=== PATIENT | male | born 1985 | race Caucasian/White ===

== ENCOUNTER 2020-12-31 15:12 | Emergency (ER) | payer SELFPAY ==
[~2020-12-31] VITALS: Ht 170.2 cm; Wt 75.0 kg
[2020-12-31 15:52] VITALS: BP 112/71
[2020-12-31] MEDS ORDERED: HYDROcodone/APAP 5/325MG 1 TAB TABLET PO ONE (16:45)
[2020-12-31] MEDS ORDERED: DIPH,PERTUSS(ACELL),TET VAC/PF 0.5 ML SYRINGE. VAX IM ONE (16:45)
[2020-12-31] MEDS ORDERED: NEOMY/BACITR/POLYMYXIN OINT PACKET. TP ONE (16:45)
--- NOTE | 2020-12-31 18:04 | RAD ---
EXAM: PA, oblique and lateral views of the right hand DATE: 12/31/2020 5:13 PM INDICATION: Reason: dog bites pain / Spl. Instructions: / History: COMPARISON: No Prior FINDINGS/ IMPRESSION: No acute fracture or dislocation. Soft tissue swelling and gas surrounding the metacarpals. No defini te retained radiopaque foreign body. Electronically signed by: Erick Paige MD (12/31/2020 6:02 PM) [facility]
[2020-12-31] MEDS ORDERED: AMOX1TAB61 PO (18:08)
--- NOTE | 2020-12-31 18:08 | PHYS DOC ---
Past Medical History Past Medical History: No Pertinent History (LI VALLES DO) Past Surgical History: No Surgical History (LI VALLES DO) Smoking Status: Current Every Day Smoker Alcohol Use: Occasionally (LI VALLES DO) General Adult EDM: Chief Complaint: ANIMAL BITE HPI: HPI: Patient is a 35 year old [f__sex] who presents with [] (LI VALLES DO) HPI: This chart was created twice, ignore this chart. Look at the original chart with the same name that was completed (RADHA ASHER APRN) Review of Systems: Review of Systems: Constitutional: Denies fever or chills. [] Eyes: Denies change in visual acuity. [] HENT: Denies nasal congestion or sore throat. [] Respiratory: Denies cough or shortness of breath. [] Cardiovascular: Denies chest pain or edema. [] GI: Denies abdominal pain, nausea, vomiting, bloody stools or diarrhea. [] : Denies dysuria. [] Musculoskeletal: Denies back pain or joint pain. [] Integument: Denies rash. [] Neurologic: Denies headache, focal weakness or sensory changes. [] Endocrine: Denies polyuria or polydipsia. [] Lymphatic: Denies swollen glands. [] Psychiatric: Denies depression or anxiety. [] (LI VALLES DO) Heart Score: Risk Factors: Risk Factors: DM, Current or recent (<one month) smoker, HTN, HLP, family history of CAD, obesity. Risk Scores: Score 0 - 3: 2.5% MACE over next 6 weeks - Discharge Home Score 4 - 6: 20.3% MACE over next 6 weeks - Admit for Clinical Observation Score 7 - 10: 72.7% MACE over next 6 weeks - Early Invasive Strategies (LI VALLES DO) C/O Chest Pain: N/A (RADHA ASHER APRN) Current Medications: Current Medications Medications (Trade) Dose Ordered Sig/Jovany Start Time Stop Time Status Last Admin Dose Admin Acetaminophen/ Hydrocodone Bitart (Lortab 5/325) 1 tab 1X ONCE 12/31/20 16:45 12/31/20 16:46 DC 12/31/20 17:13 1 TAB Diphtheria/ Tetanus/Acell Pertussis (ADACEL TDap SYRINGE) 0.5 ml ONCE ONCE 12/31/20 16:45 12/31/20 16:46 DC 12/31/20 17:14 0.5 ML Neomycin/ Polymyxin/ Bacitracin (Triple Antibiotic Ointment) 1 pkt 1X ONCE 12/31/20 16:45 12/31/20 16:46 DC 12/31/20 17:13 1 PKT (LI VALLES DO) Allergies: Allergies: Allergies Coded Allergies Type Severity Reaction Last Updated Verified No Known Drug Allergies 12/31/20 No (LI VALLES DO) Physical Exam: PE: Constitutional: Well developed, well nourished, no acute distress, non-toxic appearance. [] HENT: Normocephalic, atraumatic, bilateral external ears normal, oropharynx moist, no oral exudates, nose normal. [] Eyes: PERRLA, EOMI, conjunctiva normal, no discharge. [] Neck: Normal range of motion, no tenderness, supple, no stridor. [] Cardiovascular:Heart rate regular rhythm, no murmur [] Lungs & Thorax: Bilateral breath sounds clear to auscultation [] Abdomen: Bowel sounds normal, soft, no tenderness, no masses, no pulsatile masses. [] Skin: Warm, dry, no erythema, no rash. [] Back: No tenderness, no CVA tenderness. [] Extremities: No tenderness, no cyanosis, no clubbing, ROM intact, no edema. [] Neurologic: Alert and oriented X 3, normal motor function, normal sensory fun ction, no focal deficits noted. [] Psychologic: Affect normal, judgement normal, mood normal. [] (LI VALLES DO) Current Patient Data: Vital Signs: Vital Signs Date Time Temp Pulse Resp B/P (MAP) Pulse Ox O2 Delivery O2 Flow Rate FiO2 12/31/20 15:52 98.0 79 16 112/71 (85) 96 Room Air 98.0 (LI VALLES DO) EKG: EKG: [] (LI VALLES DO) Radiology/Procedures: Radiology/Procedures: [] (LI VALLSE DO) Course & Med Decision Making: Course & Med Decision Making Pertinent Labs and Imaging studies reviewed. (See chart for details) [] (LI VALLES DO) Course & Med Decision Making This chart was created twice. This is a duplicate. Ignore this chart (RADHA ASHER APRN) Dragon Disclaimer: Dragon Disclaimer: This electronic medical record was generated, in whole or in part, using a voice recognition dictation system. (LI VALLES DO) Departure Departure Impression: Primary Impression: Dog bite Disposition: 01 DC HOME SELF CARE/HOMELESS Condition: STABLE Referrals: NO PCP (PCP) Patient Instructions: Animal Bite Scripts Amoxicillin/Potassium Clav (AUGMENTIN 875-125 TABLET) 1 Each Tablet 1 TAB PO BID for 10 Days, #20 TAB 0 Refills Prov: LI VALLES DO 12/31/20 LI VALLES DO Dec 31, 2020 18:08 RADHA ASHER APRN Dec 31, 2020 21:42
--- NOTE | 2020-12-31 18:09 | PHYS DOC ---
Past Medical History Past Medical History: No Pertinent History Past Surgical History: No Surgical History Smoking Status: Current Every Day Smoker Alcohol Use: Occasionally General Adult EDM: Chief Complaint: ANIMAL BITE HPI: HPI: Patient is a 35 year old patient who presents to the ED today with dog bite to the right hand. Patient and 2 other family members were the dogs from a fight when they got bit. Patient is right-handed. Review of Systems: Review of Systems: Constitutional: Denies fever or chills. [] Musculoskeletal: Denies back pain or joint pain. [] Integument: Dog bite to the right hand Neurologic: Denies headache, focal weakness or sensory changes. [] Psychiatric: Denies depression or anxiety. [] Heart Score: C/O Chest Pain: N/A Risk Factors: Risk Factors: DM, Current or recent (<one month) smoker, HTN, HLP, family history of CAD, obesity. Risk Scores: Score 0 - 3: 2.5% MACE over next 6 weeks - Discharge Home Score 4 - 6: 20.3% MACE over next 6 weeks - Admit for Clinical Observation Score 7 - 10: 72.7% MACE over next 6 weeks - Early Invasive Strategies Current Medications: Current Medications Medications (Trade) Dose Ordered Sig/Jovany Start Time Stop Time Status Last Admin Dose Admin Acetaminophen/ Hydrocodone Bitart (Lortab 5/325) 1 tab 1X ONCE 12/31/20 16:45 12/31/20 16:46 DC 12/31/20 17:13 1 TAB Diphtheria/ Tetanus/Acell Pertussis (ADACEL TDap SYRINGE) 0.5 ml ONCE ONCE 12/31/20 16:45 12/31/20 16:46 DC 12/31/20 17:14 0.5 ML Neomycin/ Polymyxin/ Bacitracin (Triple Antibiotic Ointment) 1 pkt 1X ONCE 12/31/20 16:45 12/31/20 16:46 DC 12/31/20 17:13 1 PKT Allergies: Allergies: Allergies Coded Allergies Type Severity Reaction Last Updated Verified No Known Drug Allergies 12/31/20 No Physical Exam: PE: Constitutional: Well developed, well nourished, no acute distress, non-toxic appearance. [] Skin: Right hand with a dog bite on the right middle finger knuckle approximately 1 cm long, there is another dog bite between the webspace of the right index finger and thumb roughly 2 cm long. None of the bites are cutting through the tendons. Patient able to move the right hand and fingers with no difficulties. +2 right radial pulse. Cap refill less than 2 seconds of right fingers. Back: No tenderness, no CVA tenderness. [] Extremities: No tenderness, no cyanosis, no clubbing, ROM intact, no edema. [] Neurologic: Alert and oriented X 3, normal motor function, normal sensory function, no focal deficits noted. [] Psychologic: Affect normal, judgement normal, mood normal. [] Current Patient Data: Vital Signs: Vital Signs Date Time Temp Pulse Resp B/P (MAP) Pulse Ox O2 Delivery O2 Flow Rate FiO2 12/31/20 15:52 98.0 79 16 112/71 (85) 96 Room Air 98.0 EKG: EKG: [] Radiology/Procedures: Radiology/Procedures: []PROCEDURE: HAND RIGHT 3V EXAM: PA, oblique and lateral views of the right hand DATE: 12/31/2020 5:13 PM INDICATION: Reason: dog bites pain / Spl. Instructions: / History: COMPARISON: No Prior FINDINGS/ IMPRESSION: No acute fracture or dislocation. Soft tissue swelling and gas surrounding the metacarpals. No definite retained radiopaque foreign body. Electronically signed by: Erick Paige MD (12/31/2020 6:02 PM) [facility] DICTATED and SIGNED BY: ERICK PAIGE MD DATE: 12/31/20 [id number] 0 Course & Med Decision Making: Course & Med Decision Making Pertinent Labs and Imaging studies reviewed. (See chart for details) This is a 35-year-old male patient presented to the ED today with dog bites to the right hand. Right hand x-rays are negative. Tetanus updated. Discharged on Augmentin. Dragon Disclaimer: Dragon Disclaimer: This electronic medical record was generated, in whole or in part, using a voice recognition dictation system. Departure Departure Impression: Primary Impression: Dog bite of right hand Qualified Codes: S61.451A - Open bite of right hand, initial encounter; W54.0XXA - Bitten by dog, initial encounter Disposition: 01 DC HOME SELF CARE/HOMELESS Condition: STABLE Referrals: NO PCP (PCP) Scripts Amoxicillin/Potassium Clav (AUGMENTIN 875-125 TABLET) 1 Each Tablet 1 TAB PO BID for 10 Days, #20 TAB 0 Refills Prov: LI VALLES DO 12/31/20 RADHA ASHER APRN Dec 31, 2020 18:09
== END 2020-12-31 19:11 | disposition home or self-care (01) ==
LOC: ER 15:12
DX: S61.451A Open bite of right hand, initial encounter (principal); F17.200 Nicotine dependence, unspecified, uncomplicated; W54.0XXA Bitten by dog, initial encounter; Y93.89 Activity, other specified; Y92.89 Other specified places as the place of occurrence of the external cause; Y99.8 Other external cause status
CPT/HCPCS: 73130; 90471; 90715; 99283

== ENCOUNTER 2021-12-15 07:11 | Emergency (ER) | payer SELFPAY ==
[~2021-12-15] VITALS: Ht 170.2 cm; Wt 66.0 kg
[~2021-12-15 07:11] MED LIST: AMOX1TAB61 PO
[2021-12-15] MEDS ORDERED: HYDROcodone/APAP 5/325MG 1 TAB TABLET PO ONE (07:45)
[2021-12-15] MEDS ORDERED: LIDOCAINE 1% Multi-Dose 20 ML VIAL. INJ ONE ×2 (07:45→10:00)
[2021-12-15] MEDS ORDERED: AMOXICILLIN/K CLAV 875/125MG TABLET. PO ONE (07:45)
[2021-12-15] MEDS ORDERED: ONDANSETRON ODT 4 MG TAB.RAPDIS. PO ONE (07:45)
--- NOTE | 2021-12-15 08:08 | RAD ---
Exam: XR FOREARM_RIGHT 2 VIEWS History: Dog bite Comparison: None. Findings: Osseous mineralization is normal. No acute fracture or dislocaton. Subcutaneous edema and emphysema i n the forearm with skin irregularity. No radiopaque foreign body. Impression: 1. No acute osseous abnormality in the right forearm. No radiopaque foreign body. Electronically signed by: Vahe Kern MD (12/15/2021 8:06 AM) [id number]
[2021-12-15] MEDS ORDERED: AMOX1TAB11 PO (10:55)
[2021-12-15] MEDS ORDERED: HYDR-2761 PO (10:55)
[2021-12-15] MEDS ORDERED: BACI28.34 TP (10:55)
[2021-12-15] MEDS ORDERED: IBUP-1007 PO (10:55)
--- NOTE | 2021-12-15 10:56 | PHYS DOC ---
Past Medical History Past Medical History: No Pertinent History Past Surgical History: No Surgical History Smoking Status: Current Every Day Smoker Alcohol Use: Occasionally General Adult EDM: Chief Complaint: ANIMAL BITE HPI: HPI: Patient is a 36-year-old male presents to the emergency department reporting that he was bitten to the right forearm by his dog this morning at approximately 6:30 AM. Patient reports the dog's immunizations are up-to-date, the patient reports his last tetanus immunization was approximately 1 year ago, patient complains of right forearm pain, denies numbness or tingling distal to dog bite wounds, reports a 8 out of 10 pain. Did not take pain medication prior to arrival to the emergency department. Patient reports he disrupted up and came to the ER for evaluation and treatment. Patient denies falling, denies hitting his head, denies dizziness, syncopal or near syncopal episodes, denies nausea. Patient denies other physical complaints or physical concerns. Review of Systems: Review of Systems: 14 body systems of review of systems have been reviewed. See HPI for pertinent positives and negative responses, otherwise all other systems are negative, nonpertinent or noncontributory. Constitutional: Negative except as outlined in HPI above. Skin: Negative except as outlined in HPI above. Eyes: Negative except as outlined in HPI above. HENT: Negative except as outlined in HPI above. Respiratory: Negative except as outlined in HPI above. Cardiovascular: Negative except as outlined in HPI above. GI: Negative except as outlined in HPI above. : Negative except as outlined in HPI above. Musculoskeletal: Negative except as outlined in HPI above. Integument: Negative except as outlined in HPI above. Neurologic: Negative except as outlined in HPI above. Endocrine: Negative except as outlined in HPI above. Lymphatic: Negative except as outlined in HPI above. Psychiatric: Negative except as outlined in HPI above. Heart Score: C/O Chest Pain: No Risk Factors: Risk Factors: DM, Current or recent (<one month) smoker, HTN, HLP, family history of CAD, obesity. Risk Scores: Score 0 - 3: 2.5% MACE over next 6 weeks - Discharge Home Score 4 - 6: 20.3% MACE over next 6 weeks - Admit for Clinical Observation Score 7 - 10: 72.7% MACE over next 6 weeks - Early Invasive Strategies Current Medications: Current Medications Medications (Trade) Dose Ordered Sig/Jovany Start Time Stop Time Status Last Admin Dose Admin Acetaminophen/ Hydrocodone Bitart (Lortab 5/325) 2 tab 1X ONCE 12/15/21 07:45 12/15/21 07:49 DC 12/15/21 07:55 2 TAB Amoxicillin/ Clavulanate Potassium (Augmentin 875/ 125mg) 1 tab 1X ONCE 12/15/21 07:45 12/15/21 07:49 DC 12/15/21 07:54 1 TAB Bacitracin (Bacitracin Zinc Oint Pkt) 5 pkt 1X ONCE 12/15/21 11:00 12/15/21 11:01 Lidocaine HCl (Lidocaine 1% 20ml Vial) 20 ml 1X ONCE 12/15/21 10:00 12/15/21 10:01 DC 12/15/21 10:01 20 ML Ondansetron HCl (Zofran Odt) 4 mg 1X ONCE 12/15/21 07:45 12/15/21 07:49 DC 12/15/21 07:54 4 MG Allergies: Allergies: Allergies Coded Allergies Type Severity Reaction Last Updated Verified No Known Drug Allergies 12/31/20 No Physical Exam: PE: Constitutional: Well developed, well nourished, no acute distress, non-toxic appearance. 36-year-old male in no apparent distress. HENT: Normocephalic, atraumatic. Eyes: Conjunctiva normal, no discharge. Neck: Normal range of motion, no stridor. Cardiovascular: No cyanosis appreciated, distal cap refill less than 2 seconds. Lungs & Thorax: Patient is in no respiratory distress, no audible adventitious lung sounds appreciated. Abdomen: Nontender, no abnormalities noted. Skin: Warm, dry, no erythema, no rash. See extremity note for focused skin examination. Back: No tenderness, no deformities. Extremities: No tenderness, no cyanosis, no clubbing, ROM intact, no edema. Except right forearm, patient has multiple dog bite puncture wounds and lacerations from dog bite. There is a 4 cm still laceration to the anterior forearm, there is a 4 cm laceration just adjacent to the posterior forearm, these are both the most proximal lacerations, just distal to these lacerations are a 2 cm laceration to the posterior forearm, a 1.5 cm laceration to the anterior forearm, just distal is a 1/2 cm laceration to the anterior forearm, just distal is a 7 2 cm laceration to the proximal forearm, just adjacent is a 0.5 cm laceration. Patient has full AROM/PROM of elbow joint, wrist joint, finger joints, wrists equal swatch clerk strength bilaterally, 2+ equal bilateral radial pulses, distal cap refills less than 2 seconds equal bilateral upper extremities. Neurologic: Alert and oriented X 3, normal motor function, normal sensory function, no focal deficits noted. Psychologic: Affect normal, judgement normal, mood normal. Current Patient Data: Labs: Current Medications Medications (Trade) Dose Ordered Sig/Jovany Route PRN Reason Start Time Stop Time Status Last Admin Dose Admin Acetaminophen/ Hydrocodone Bitart (Lortab 5/325) 2 tab 1X ONCE PO 12/15/21 07:45 12/15/21 07:49 DC 12/15/21 07:55 Ondansetron HCl (Zofran Odt) 4 mg 1X ONCE PO 12/15/21 07:45 12/15/21 07:49 DC 12/15/21 07:54 Amoxicillin/ Clavulanate Potassium (Augmentin 875/ 125mg) 1 tab 1X ONCE PO 12/15/21 07:45 12/15/21 07:49 DC 12/15/21 07:54 Lidocaine HCl (Lidocaine 1% 20ml Vial) 20 ml 1X ONCE INJ 12/15/21 07:45 12/15/21 07:49 DC 12/15/21 07:54 Lidocaine HCl (Lidocaine 1% 20ml Vial) 20 ml 1X ONCE INJ 12/15/21 10:00 12/15/21 10:01 DC 12/15/21 10:01 Bacitracin (Bacitracin Zinc Oint Pkt) 5 pkt 1X ONCE TP 12/15/21 11:00 12/15/21 11:01 DC 12/15/21 11:10 Vital Signs: Vital Signs Date Time Temp Pulse Resp B/P (MAP) Pulse Ox O2 Delivery O2 Flow Rate FiO2 12/15/21 08:25 17 96 Room Air 12/15/21 07:18 97.5 97 153/94 (113) 97.5 EKG: EKG: [] Radiology/Procedures: Radiology/Procedures: REASON: dog bite PROCEDURE: FOREARM RIGHT Exam: XR FOREARM_RIGHT 2 VIEWS History: Dog bite Comparison: None. Findings: Osseous mineralization is normal. No acute fracture or dislocaton. Subcutaneous edema and emphysema in the forearm with skin irregularity. No radiopaque foreign body. Impression: 1. No acute osseous abnormality in the right forearm. No radiopaque foreign body. Electronically signed by: Vahe Kern MD (12/15/2021 8:06 AM) [id number] Course & Med Decision Making: Course & Med Decision Making Pertinent Labs and Imaging studies reviewed. (See chart for details) 36-year-old male, vital signs reviewed, resents emergency department concerning dog bite wounds to the right forearm, patient reports this is his dog, his immunizations are up-to-date, will defer rabies vaccination series, physical examination is consistent with patient's explanation of events, see laceration repair note. There were several small puncture wounds to the right forearm, lacerations were repaired, patient remains neurovascular intact after laceration repair, discussed with sutures and joni out in 7 to 10 days, discussed wound care, signs and symptoms of emergent process, breast cancer empiric antibiotic coverage shortness of breath a, reviewed side effects of medications, reviewed return to ER precautions and concerns, follow-up with primary care for wound check and suture removal, patient gave verbal understanding of and is amenable to ED discharge planning. Discussed with the patient all findings and diagnostic testing as well as the need to follow-up with their primary care provider for further evaluation and treatment or return to the ED if any new or worsening symptoms. Strict return precautions were also discussed at length, the patient voiced understanding and agreement with the discharge planning. The patient was nontoxic in appearance, in no apparent distress, and hemodynamically stable at the time of disposition. Karley Disclaimer: Karley Disclaimer: This electronic medical record was generated, in whole or in part, using a voice recognition dictation system. Laceration Repair Lac Repair Indication: Dog bite lacerations to right forearm Time: 0 930 Confirmed: Patient, procedure, side, and site correct. Consent: Patient, has given verbal consent. Description/repair Procedure: The patient was placed in the appropriate position and anesthesia around the lacerations were achieved with 30 cc 1% lidocaine without epinephrine. The area was then cleansed with Betadine solution, vigorously irrigated with 1000 cc of normal saline, explored for foreign bodies, no foreign bodies were visualized, laceration #1. Was closed with 6 interrupted sutures using 4-0 nylon, laceration #2 was closed with 6 interrupted sutures using 4-0 nylon, laceration #3 was closed with 2 interrupted sutures using 4-0 nylon, laceration #4 was closed with 2 interrupted sutures using 4-0 nylon, laceration #5 was closed with 3 dermal joni, laceration #6 was closed with 2 dermal joni. All adjacent dog bite puncture wounds abrasions, suture sites, staple sites were cleansed and dressed with bacitracin and bandage by ED nursing staff. Complexity: Single layer. Post procedure exam: Circulation, motor, sensory examination intact, bleeding controlled. Total repaired wound length: 13 cm. Other Items: There were no other items The patient tolerated the procedure well. Complications: Patient was difficult to Menissa size, use 30 cc 1% lidocaine without epinephrine. Performed by: Ephraim Roy, PROPERTY ASSESSMENT MONITOR-C Supervision: Dr. Schwartz was present for consult regarding the critical aspects of the procedure including closure and post procedure exam. Total time: 50 minutes. Departure Departure Impression: Primary Impression: Dog bite of right forearm Qualified Codes: S51.851A - Open bite of right forearm, initial encounter; W54.0XXA - Bitten by dog, initial encounter Additional Impression: Laceration of skin of right forearm Qualified Codes: S51.811A - Laceration without foreign body of right forearm, initial encounter Disposition: 01 HOME / SELF CARE / HOMELESS Condition: GOOD Referrals: NO PCP (PCP) Patient Instructions: Laceration Care, Adult, Stitches, [place] or Skin Adhesive Strips, [id number] Additional Instructions: You were seen today in the emergency department after your dog bit your right forearm, this resulted in multiple laceration sites that required both suture and staple repair, you have a total of 15 sutures placed in 4 of your lacerations, there are 3 joni and 1/5 laceration and 2 dermal joni and a 6 laceration, please keep these clean and dry, cleanse the least twice a day with gentle soap and water, pat dry, apply antibiotic ointment and dress, watch for signs and symptoms of infectious process, because of the nature of the injury your being started on an antibiotic to prevent infectious process. Please have these joni and sutures removed in 7 to 10 days. Return to the emergency department for worsening symptoms or other concerns, follow-up with your primary care physician to have these sutures and joni removed. I have added a list of area healthcare providers and health clinics for you to establish primary care please call soon for an appointment. Thank you for visiting our Emergency Department. It was a pleasure taking care of you today in the emergency department and we appreciate you trusting us with your care. If any additional problems come up don't hesitate to return to visit us. Please follow up with your primary care provider so they can plan additional care if needed and know about the problem that you had. If symptoms worsen come back to the Emergency Department. Any concerning symptoms that start such as chest pain, shortness of air, weakness or numbness on one side of the body, running high fevers or any other concerning symptoms return to the ER. An x-ray was performed today of your right forearm, there were no signs or evidence of foreign bodies broken bones or remained dog teeth in your dog bite wounds. You have been tested for or diagnosed with COVID-19. It is an infection caused by a new type of coronavirus. COVID-19 will cause cold-like or mild flu symptoms in most. It can cause more severe symptoms like problems breathing in some. There is no treatment for COVID-19. The body will clear the infection over time. Self-care will help to ease discomfort. Steps to Take: Self-Care Rest as needed. Healthy habits may help you feel better. Steps include: Choose healthy foods including fruits and vegetables. Drink water throughout the day. Get plenty of sleep each night. If you smoke, try to quit. It may ease breathing. Avoid alcohol. Keep Others Healthy The virus can spread to others. Droplets are released every time you sneeze or cough. The droplets can get into the mouth, nose, or eyes of people near you and lead to infection. To lower the chances of spreading COVID-19 to others: Stay at home until your doctor has said it is safe to leave. If you tested positive this will mean staying isolated until both of the following are true: At least 7 days have passed since the start of illness. You are free of fever for at least 72 hours without the use of medicine. During this time: - Avoid public areas, events, or transportation. Do not return to work or school until your doctor has said it is safe to do so. - Call ahead if you need to go to a medical center. Let them know you may have COVID-19. It will help them guide you where to go. They may also ask you to wear a facemask when you come to the office. - If you call for emergency medical services, let them know you may have COVID- 19. While at home: - Try to avoid close contact with others. Stay about 6 feet away. - If possible, spend most of your time in a separate room from others. - Use a face mask if you will be in close contact with others such as sharing a room or vehicle. - Have someone wipe down common surfaces in the home. Use household histology tech every day on areas like doorknobs, counters, or sinks. - Cough or sneeze into a tissue. Throw the tissue away right after use. If a tissue is not available, cough or sneeze into your elbow. - Wash your hands often. Wash them after sneezing or coughing. Use soap and water and wash for at least 20 seconds. Alcohol based hand casting cleaner can be used if soap and water is not available. - Do not prepare food for others. Avoid sharing personal items like forks, spoons, or toothbrushes. - Avoid close contact with pets while you are sick. There is no evidence of the virus passing to pets. This is a safety step until more is known about this virus. Isolation can be frustrating. Social interaction can help. Keep in touch with friends and family through phone and tech options. You can still interact with others in y our home, just keep a safe distance of about 6 feet. Follow-up: Your doctors office will check in with you to see if there are any changes in your health. You may be asked to keep track of symptoms to share with them. They will also let you know when you are clear to be in public again. Problems to Look Out For: Contact your doctor if your recovery is not going as you expect. Get emergency care if you have problems such as: - Trouble breathing - Nonstop chest pain or pressure - Changes in awareness, confusion, or problems waking - Lips or face have bluish color - Worsening of symptoms If you think you have an emergency, call for emergency medical services right away. As taken from [facility] Bacitracin/Polymyxin B Sulfate (POLYSPORIN TOPICAL OINT) 28.3 Gm Oint...g. 1 EMELY TP TID for WOUND CARE, #1 EACH 0 Refills DIRECTED BY PHYSICIAN Prov: EPHRAIM ZARAGOZA APRN 12/15/21 Ibuprofen (IBUPROFEN) 600 Mg Tablet 600 MG PO PRN Q6HRS PRN for pain and imflammation, #30 TAB 0 Refills Prov: EPHRAIM ZARAGOZA APRN 12/15/21 Hydrocodone Bit/Acetaminophen (HYDROCODONE-APAP 5-325 ) 1 Tab Tablet 1 TAB PO PRN Q6HRS PRN for SEVERE PAIN 7-10, #10 TAB 0 Refills Prov: EPHRAIM ZARAGOZA APRN 12/15/21 Amoxicillin/Potassium Clav (AMOX TR-K CLV 875-125 MG TAB) 1 Each Tablet 1 TAB PO BID for dog bite wound, #20 TAB 0 Refills Prov: EPHRAIM ZARAGOZA APRN 12/15/21 EPHRAIM ZARAGOZA APRN Dec 15, 2021 10:56
[2021-12-15] MEDS ORDERED: BACITRACIN TOPICAL OINT PACKET. TP ONE (11:00)
[2021-12-15 11:13] VITALS: BP 118/81
== END 2021-12-15 11:16 | disposition home or self-care (01) ==
LOC: ER 07:11
DX: S51.811A Laceration without foreign body of right forearm, initial encounter (principal); F17.200 Nicotine dependence, unspecified, uncomplicated; W54.0XXA Bitten by dog, initial encounter; Y99.8 Other external cause status; Y93.89 Activity, other specified; Y92.89 Other specified places as the place of occurrence of the external cause
CPT/HCPCS: 12005; 73090; 99284; J3490

== ENCOUNTER 2021-12-23 08:35 | Emergency (ER) | payer SELFPAY ==
[~2021-12-23] VITALS: Ht 170.2 cm; Wt 79.5 kg
[2021-12-23 08:35] VITALS: BP 119/79
[~2021-12-23 08:35] MED LIST changes: +AMOX1TAB11 PO; +BACI28.34 TP; +HYDR-2761 PO; +IBUP-1007 PO
--- NOTE | 2021-12-23 08:52 | PHYS DOC ---
Past Medical History Past Medical History: No Pertinent History Past Surgical History: No Surgical History Smoking Status: Current Every Day Smoker Alcohol Use: Occasionally General Adult EDM: Chief Complaint: SUTURE/STAPLE REMOVAL HPI: HPI: Patient is a 36 year old male who presents here for suture and staple removal from his right forearm. He was seen here 8 days ago and had multiple sutures and joni were placed after sustaining dog bite lacerations. He took the prescribed antibiotics as directed. He denies any pain, bleeding, fever, drainage. No new injury. He reports that his tetanus is current. He has no other complaints. Review of Systems: Review of Systems: As per HPI. Heart Score: C/O Chest Pain: N/A Risk Factors: Risk Factors: DM, Current or recent (<one month) smoker, HTN, HLP, family history of CAD, obesity. Risk Scores: Score 0 - 3: 2.5% MACE over next 6 weeks - Discharge Home Score 4 - 6: 20.3% MACE over next 6 weeks - Admit for Clinical Observation Score 7 - 10: 72.7% MACE over next 6 weeks - Early Invasive Strategies Allergies: Allergies: Allergies Coded Allergies Type Severity Reaction Last Updated Verified No Known Drug Allergies 12/31/20 No Physical Exam: PE: Constitutional: Well developed, well nourished, no acute distress, non-toxic appearance. [] HENT: Normocephalic, atraumatic Cardiovascular: +2 radial pulse of the right upper extremity, no edema, no cyanosis, warm and well-perfused appearing Skin: Warm, dry, no warmth, no erythema, no drainage, no induration or fluctuance. Multiple, well healing lacerations and abrasions of the right volar and dorsal forearm, with sutures and joni in place. No gaping or open wounds or wound dehiscence noted Extremities: Multiple healing wounds of the right forearm, as above. No evidence of warmth, erythema, swelling. Compartments are soft. Full painless range of motion. Neurologic: Awake, alert, ambulatory with a steady gait, gross motor function normal Psychologic: He is slightly anxious but cooperative. EKG: EKG: [] Radiology/Procedures: Radiology/Procedures: [] Course & Med Decision Making: Course & Med Decision Making I personally removed his joni and sutures without difficulty. I placed a Vaseline gauze and Telfa dressing over one of the larger wounds of the volar right forearm. I placed a Kerlix dressing over the wound. I discussed home care instructions. There is no current indication for further antibiotics, no indication for imaging, no indication for any further emergency department work- up or invasive exams. His wounds appear to be healing well. Return precautions are given. He verbalizes understanding Karley Disclaimer: Karley Disclaimer: This electronic medical record was generated, in whole or in part, using a voice recognition dictation system. Departure Departure Impression: Primary Impression: Encounter for removal of sutures Disposition: 01 HOME / SELF CARE / HOMELESS Condition: STABLE Referrals: NO PCP (PCP) Patient Instructions: Suture Removal Additional Instructions: Return to the ER for severe redness, swelling, yellow or green wound drainage, temperature 100.4 or higher, if you are acutely injured or for any other concerns. Keep your wounds clean and dry, using plain soap and water. You may buy a thin layer of Neosporin or Vaseline on your wounds. Follow-up with your primary care doctor. NIMCO CABRERA DO Dec 23, 2021 08:52
== END 2021-12-23 09:13 | disposition home or self-care (01) ==
LOC: ER 08:35
DX: S51.811D Laceration without foreign body of right forearm, subsequent encounter (principal); F17.200 Nicotine dependence, unspecified, uncomplicated; X58.XXXD Exposure to other specified factors, subsequent encounter
CPT/HCPCS: 99282